=== PATIENT | female | born 2000 | race Caucasian/White ===

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

== ENCOUNTER 2019-02-13 13:32 | Emergency (ER) | payer OTHER ==
[~2019-02-13] VITALS: Ht 152.4 cm; Wt 88.5 kg
[~2019-02-13 13:32] MED LIST changes: +CEPH500 PO
[2019-02-13 15:06] LABS: BASOPHILS ABSOLUTE AUTO 0.05 K/mm3 (0.00-0.23); BASOPHILS PERCENT AUTO 1 % (0-2); EOSINOPHILS PERCENT AUTO 3 % (0-6); Hematocrit 44.6 % (33.0-51.0); Hemoglobin 14.6 g/dL (11.5-16.0); IMMATURE GRAN ABSOLUTE AUTO 0.02 K/mm3 (0.00-0.10); IMMATURE GRAN PERCENT AUTO 0 % (0-1); LYMPHOCYTES PERCENT AUTO 42 % (21-46); MONOCYTES ABSOLUTE AUTO 0.82 K/mm3 (0.16-1.47); MONOCYTES PERCENT AUTO 10 % (4-13); Mean Corpuscular HGB Conc 32.7 g/dL (31.5-36.5); Mean Corpuscular Volume 95 fL (80-100); Mean Platelet Volume 9.9 fL (9.1-12.4); NEUTROPHILS ABSOLUTE AUTO 3.53 K/mm3 (1.96-9.15); NEUTROPHILS PERCENT AUTO 44 % (41-73); Platelet Count 277 K/mm3 (150-400); RDW Coefficient Variation 11.6 % (11.7-14.2); RDW Standard Deviation 40.4 fL (35.1-46.3); Red Blood Cell Count 4.71 M/mm3 (3.80-5.20); White Blood Cell Count 8.02 K/mm3 (4.00-11.30)
[2019-02-13 15:29] LABS: Alanine Aminotransfer (ALT/SGP 50 U/L (12-78); Albumin, Blood 3.9 g/dL (3.4-5.0); Alk Phos 60 U/L (45-116); Anion Gap 9 mmol/L (6-16); Aspartate Aminotrans (AST/SGOT 30 U/L (12-37); Bilirubin, Total 0.2 mg/dL (0.1-1.0); Blood Urea Nitrogen 12 mg/dL (8-21); Bun/Creatinine Ratio 17.3 (12.0-20.0); CO2, Blood 20 mmol/L (21-32); Chloride, Blood 109 mmol/L (98-108); Creatinine, Blood 0.69 mg/dL (0.40-1.00); Globulin, Blood 3.9 g/dL (2.2-4.0); Glomerular Filtration Rate >60 (60-); Glucose, Blood 94 mg/dL (70-99); Potassium, Blood 4.3 mmol/L (3.5-5.5); Sodium, Blood 138 mmol/L (136-145); Total Protein, Blood 7.8 g/dL (6.4-8.2)
== END 2019-02-13 18:04 | disposition home or self-care (01) ==
LOC: ER 13:32
PROVIDERS: Physician Assistant
DX: H53.9 Unspecified visual disturbance (principal); Z79.899 Other long term (current) drug therapy
CPT/HCPCS: 36415; 70450; 80053; 85025; 99284-25

== ENCOUNTER → 2020-09-26 | Outpatient (CLI) | payer OTHER | END | disposition home or self-care (01) | LOC: LAB 11:15 → LAB SHORT 11:15 | PROVIDERS: Obstetrics & Gynecology | DX: Z01.419 Encounter for gynecological examination (general) (routine) without abnormal findings (principal) | CPT/HCPCS: G0123 ==

== ENCOUNTER → 2022-03-06 | Outpatient (CLI) | payer OTHER ==
[2022-03-11 00:09] LABS: CHLAMYDIA BY NAA Positive (Negative); GONOCOCCUS BY NAA Positive (Negative); TRICH VAG BY NAA Negative (Negative)
== END | disposition home or self-care (01) ==
LOC: LAB SHORT 18:54
PROVIDERS: Chiropractor
DX: N39.0 Urinary tract infection, site not specified (principal); Z72.51 High risk heterosexual behavior
CPT/HCPCS: 87077; 87086; 87186

== ENCOUNTER → 2022-03-07 | Outpatient (CLI) | payer OTHER ==
[2022-03-07 10:31] LABS: BASOPHILS ABSOLUTE AUTO 0.05 K/mm3 (0.00-0.23); BASOPHILS PERCENT AUTO 1 % (0-2); EOSINOPHILS ABSOLUTE AUTO 0.34 K/mm3 (0.00-0.68); EOSINOPHILS PERCENT AUTO 5 % (0-6); Hematocrit 44.7 % (33.0-51.0); Hemoglobin 15.3 g/dL (11.5-16.0); IMMATURE GRAN ABSOLUTE AUTO 0.02 K/mm3 (0.00-0.10); IMMATURE GRAN PERCENT AUTO 0 % (0-1); LYMPHOCYTES ABSOLUTE AUTO 2.84 K/mm3 (0.84-5.20); LYMPHOCYTES PERCENT AUTO 37 % (21-46); MONOCYTES ABSOLUTE AUTO 0.56 K/mm3 (0.16-1.47); MONOCYTES PERCENT AUTO 7 % (4-13); Mean Corpuscular HGB 30.3 pg (26.0-34.0); Mean Corpuscular HGB Conc 34.2 g/dL (31.5-36.5); Mean Corpuscular Volume 89 fL (80-100); Mean Platelet Volume 9.3 fL (9.1-12.4); NEUTROPHILS ABSOLUTE AUTO 3.83 K/mm3 (1.96-9.15); NEUTROPHILS PERCENT AUTO 50 % (41-73); Platelet Count 352 K/mm3 (150-400); RDW Coefficient Variation 11.9 % (11.7-14.2); RDW Standard Deviation 37.9 fL (35.1-46.3); Red Blood Cell Count 5.05 M/mm3 (3.80-5.20); White Blood Cell Count 7.64 K/mm3 (4.00-11.30)
[2022-03-07 10:48] LABS: Albumin, Blood 4.1 g/dL (3.4-5.0); Bun/Creatinine Ratio 11.3 (12.0-20.0); Calcium, Blood 9.3 mg/dL (8.5-10.1); Creatinine, Blood 0.97 mg/dL (0.40-1.00); Potassium, Blood 3.9 mmol/L (3.5-5.5)
[2022-03-07 11:00] LABS: Albumin/Globulin Ratio 0.8 (0.8-1.8); Total Protein, Blood 9.1 g/dL (6.4-8.2)
[2022-03-07 11:01] LABS: Bilirubin, Total 0.3 mg/dL (0.1-1.0)
== END | disposition home or self-care (01) ==
LOC: LAB SHORT 10:24
PROVIDERS: Chiropractor
DX: N10 Acute pyelonephritis (principal)
CPT/HCPCS: 80053; 85025

== ENCOUNTER → 2022-05-07 | Outpatient (CLI) | payer OTHER ==
[2022-05-07 16:41] LABS: Source, Urine Clean Catch
[2022-05-07 17:16] LABS: Bacteria Many /hpf; Squamous Epithelial Cells Mod /hpf (Few); White Blood Cells, Urine 50-100 /hpf (0-5)
[2022-05-08 10:19] LABS: Candida species (DNA Probe) Negative (NEGATIVE); G. vaginalis (DNA Probe) Positive (NEGATIVE); T. vaginalis (DNA Probe) Negative (NEGATIVE)
[2022-05-09 05:10] LABS: CHLAMYDIA TRACHOMATIS, NAA Negative (Negative)
== END | disposition home or self-care (01) ==
LOC: LAB SHORT 14:55
PROVIDERS: Emergency Medicine
DX: N89.8 Other specified noninflammatory disorders of vagina (principal); R31.9 Hematuria, unspecified
CPT/HCPCS: 81015; 87077; 87086; 87147; 87186; 87480; 87491; 87510; 87591; 87660

== ENCOUNTER → 2022-05-26 | Outpatient (CLI) | payer OTHER ==
[2022-05-28 02:08] LABS: CHLAMYDIA TRACHOMATIS, NAA Negative (Negative)
== END | disposition home or self-care (01) ==
LOC: LAB SHORT 16:28 → LAB 16:28
PROVIDERS: Obstetrics & Gynecology
DX: Z11.3 Encounter for screening for infections with a predominantly sexual mode of transmission (principal)
CPT/HCPCS: 87491; 87591

== ENCOUNTER → 2022-12-04 | Outpatient (CLI) | payer OTHER | LOC: LAB SHORT 14:56 → LAB 14:56 | DX: R30.9 Painful micturition, unspecified (principal) | CPT/HCPCS: 87077; 87086; 87186 ==

== ENCOUNTER → 2022-12-29 | Outpatient (CLI) | payer OTHER ==
[2022-12-29 10:59] LABS: Source, Urine Clean Catch
[2022-12-29 13:14] LABS: Appearance, Urine Clear (Clear); Bilirubin, Urine Neg (Neg); Blood, Urine Neg (Neg); Color, Urine Yellow (P-Yellow); Glucose Qualitative, Urine Neg (Neg); Ketones, Urine Neg (Neg); Leukocyte Esterase, Urine 2+ (Neg); Nitrite, Urine Neg (Neg); Protein, Urine Neg (Neg); Specific Gravity, Urine 1.025 (1.003-1.022); Urobilinogen, Urine NORM (Normal)
[2022-12-29 13:37] LABS: Red Blood Cells, Urine Not Seen /hpf (0-2)
[2022-12-29 13:38] LABS: Bacteria Rare /hpf; Calcium Oxalate Crystals Few /hpf; Squamous Epithelial Cells Rare /hpf (Few)
== END ==
LOC: LAB SHORT 10:56 → LAB 10:56
PROVIDERS: Obstetrics & Gynecology
DX: R30.0 Dysuria (principal)
CPT/HCPCS: 81001; 87086

== ENCOUNTER → 2023-12-20 | Outpatient (CLI) | payer OTHER ==
[2023-12-23 14:17] LABS: CORTISOL,U FREE - RATIO TO CRT 16.11 ug/g CRT; CORTISOL,URINE FREE - PER 24H 38.4 ug/d (<=45.0); CREATININE,URINE - PER 24H 2384 mg/d (700-1600); CREATININE,URINE - PER VOLUME 149 mg/dL; HOURS COLLECTED 24 hr; TOTAL VOLUME 1600 mL
== END | disposition home or self-care (01) ==
LOC: LAB 13:57 → LAB SHORT 13:57
PROVIDERS: Internal Medicine Endocrinology, Diabetes & Metabolism
DX: E66.01 Morbid (severe) obesity due to excess calories (principal)
CPT/HCPCS: 82530; 82570

== ENCOUNTER → 2024-12-20 | Outpatient (CLI) | payer OTHER | LOC: LAB 09:16 → LAB SHORT 09:16 | DX: N39.0 Urinary tract infection, site not specified (principal) | CPT/HCPCS: 87077; 87086; 87186 ==